=== PATIENT | female | born 1965 | race American Indian/Alaskan Native ===

== ENCOUNTER 2018-07-24 17:46 | Emergency (ER) | payer OTHER ==
[2018-07-24 18:50] VITALS: BMI 35.3
[2018-07-24 18:51] VITALS: RESP 18
[2018-07-24] MEDS ORDERED: Sodium Chloride 0.9% 1,000 ML IV STA (19:18)
[2018-07-24] MEDS ORDERED: Morphine 4 mg/ml ISec IVP STA (19:18)
--- NOTE | 2018-07-24 19:27 | ED PDOC ---
Arrival/HPI - General Chief Complaint: GI Problem Time Seen by Provider: 07/24/18 19:17 - History of Present Illness Narrative History of Present Illness (Text): 53 y/o F w/ h/o breast cancer s/p partial hysterectomy and flap procedure(2007) presenting to the Emergency department for persistent greneralized abdominal pain ongoing for the past 4 days. Patient reports diffuse abdominal pain radiating to the chest and back, nausea, non-bloody, non-bilious emesis, intolerance to PO intake, intermittent chills and decreased bowel movements. She reports attempting to self-medicate by alternating between Tyelenol & Motrin with minimal resolution in symptoms. She denies any previous history of similar complaint. She reports seeing her PMD today who advised her to present to the emergency department for further evaluation. PMD: Dr. Hopkins Time/Duration: Other (4 days) Symptom Course: Intermittent, Worsening Quality: Cramping, Burning Severity Level: 9 Activities at Onset: Rest Context: Home Past Medical History - Provider Review Nursing Documentation Reviewed: Yes - Travel History Have you recently traveled outside [place] w/in the past 3 mons?: No - Infectious Disease Hx of Infectious Diseases: None - Pulmonary Hx Asthma: Yes - Hematological/Oncological Hx Cancer: Yes (L breast CA) - Psychiatric Hx Substance Use: No - Surgical History Other/Comment: L mastectomy. Partial hysterectomy. (?)Trim flap - Anesthesia Hx Anesthesia: Yes Hx Anesthesia Reactions: No Hx Malignant Hyperthermia: No Family/Social History - Physician Review Nursing Documentation Reviewed: Yes Family/Social History: Unknown Family HX Smoking Status: Never Smoked Hx Alcohol Use: No Hx Substance Use: No Allergies/Home Meds Allergies/Adverse Reactions: Allergies No Known Allergies Allergy (Verified 07/24/18 18:49) Review of Systems - Review of Systems Constitutional: Night Sweats. absent: Fatigue, Weight Change, Fevers Respiratory: absent: SOB, Cough, Wheezing Cardiovascular: Chest Pain. absent: Palpitations, Edema, Calf Pain, OLEA Gastrointestinal: Abdominal Pain, Constipation, Nausea, Vomiting, Food Intolerance. absent: Diarrhea Genitourinary Female: absent: Dysuria, Frequency, Hematuria Musculoskeletal: Back Pain, Myalgias Skin: absent: Rash, Laceration Neurological: Headache. absent: Dizziness Physical Exam Vital Signs Reviewed: Yes Vital Signs Temp Pulse Resp BP Pulse Ox 07/24/18 21:24 80 18 140/95 H 99 09/17/18 18:50 98.6 F 97 H 18 143/106 H 97 Temperature: Afebrile Blood Pressure: Hypertensive Pulse: Regular Respiratory Rate: Normal Appearance: Positive for: Well-Appearing Mental Status: Positive for: Alert and Oriented X 3 - Systems Exam Head: Present: Atraumatic, Normocephalic Pupils: Present: PERRL Extroacular Muscles: Present: EOMI Conjunctiva: Present: Normal Mouth: Present: Moist Mucous Membranes Respiratory/Chest: Present: Clear to Auscultation, Good Air Exchange. No: Respiratory Distress Cardiovascular: Present: Regular Rate and Rhythm, Murmurs, Normal S1, S2 Abdomen: Present: Tenderness ( generalized tenderness), Normal Bowel Sounds. No : Distention, Peritoneal Signs, Rebound, Guarding Back: Present: Normal Inspection. No: CVA Tenderness, Midline Tenderness Upper Extremity: Present: Normal Inspection, Capillary Refill < 2s. No: Cyanosis, Edema Neurological: Present: GCS=15, CN II-XII Intact, Speech Normal Skin: Present: Warm, Dry, Normal Color Medical Decision Making ED Course and Treatment: Impression 53 y/o F presenting with generalized abdominal pain Differential Diagnoses Include But Are Not Limited To: Diverticulitis Colitis Gastroenteritis Pancreatitis ACS PUD Plan --Labs --CT a/p --Reglan --Morphine --CXR --EKG -Reassess & disposition Progress Notes 07/25/18 01:53 Labs reviewed with leucytosis of 14 noted. Patient given Cipro & Flagyl as empiric therapy for intraabdominal infection. CT a/p reveals duodenitis with possible PUD. Patient and family member updated on findings and will be reassessed once she finishes antibiotics. - Lab Interpretations Lab Results: 07/24/18 21:20 07/24/18 21:20 Lab Results 07/24/18 21:20: D-Dimer, Quantitative < 200 07/24/18 21:20: Sodium 142, Chloride 99, Potassium 4.4, Carbon Dioxide 32, Anion Gap 15, BUN 12, Creatinine 1.0, Est GFR ( Amer) > 60, Est GFR (Non- Af Amer) 58, Random Glucose 127 H, Calcium 10.2, Magnesium 2.1, Total Bilirubin 0.9, AST 24, ALT 23, Alkaline Phosphatase 87, Troponin I < 0.01, Total Protein 8.6 H, Albumin 4.9 H, Globulin 3.6, Albumin/Globulin Ratio 1.4, Lipase 50 07/24/18 21:20: pO2 34, VBG pH 7.39, VBG pCO2 59.0, VBG HCO3 35.7 H, VBG Total CO2 37.5 H, VBG O2 Sat (Calc) 53.1, VBG Base Excess 8.6 H, VBG Potassium 4.1, Sodium 141.0, Chloride 103.0, Glucose 126 H, Lactate 0.8, FiO2 21.0, Venous Blood Potassium 4.1 07/24/18 21:20: WBC 14.5 H, RBC 4.83, Hgb 15.1, Hct 43.2, MCV 89.4, MCH 31.3, MCHC 35.0, RDW 12.7, Plt Count 272, MPV 9.8, Gran % 73.1 H, Lymph % (Auto) 18.9 L, [place] % (Auto) 7.6 H, Eos % (Auto) 0.3 L, Baso % (Auto) 0.1, Gran # 10.56 H, Lymph # (Auto) 2.7, [place] # (Auto) 1.1 H, Eos # (Auto) 0.0, Baso # (Auto) 0.02, ESR 8 07/24/18 20:32: POC Glucose (mg/dL) 125 H 07/24/18 19:47: Urine Color Yellow, Urine Appearance Clear, Urine pH 6.5, Ur Specific [place] 1.020, Urine Protein 100 H, Urine Glucose (UA) Negative, Urine Ketones 40 H, Urine Blood Negative, Urine Nitrate Negative, Urine Bilirubin Negative, Urine Urobilinogen 1.0 H, Ur Leukocyte Esterase Negative, Urine RBC 0 - 2, Urine WBC 1 - 3, Ur Epithelial Cells 1 - 3 - RAD Interpretation Radiology Orders: 07/24/18 19:17 ABDOMEN & PELVIS [ABD & PELVIS IV CONTRAST ONLY] [CT] Stat 07/24/18 22:30 CHEST ONE VIEW [RAD] Stat - Medication Orders Current Medication Orders: Discontinued Medications Al Hydrox/Mg Hydrox/Simethicone (Maalox Plus 30 Ml) 30 ml PO STAT STA Stop: 07/25/18 01:48 Metoclopramide HCl 10 mg/ (Sodium Chloride) 52 mls @ 200 mls/hr IV STAT STA Stop: 07/24/18 19:33 Last Admin: 07/24/18 23:51 Dose: Not Given Non-Admin Reason: Patient Refused Sodium Chloride (Sodium Chloride 0.9%) 1,000 mls @ 999 mls/hr IV .Q1H1M STA Stop: 07/24/18 20:18 Last Admin: 07/24/18 21:12 Dose: 999 mls/hr eMAR Start Stop Document 07/24/18 21:12 SF (Rec: 07/24/18 21:12 SF [email or web address]) Intravenous Solution Start Date 07/24/18 Start Time 21:12 End Date 07/24/18 End time 22:13 Total Infusion Time 61 Ciprofloxacin (Cipro 400mg/200ml Dsw) 400 mg in 200 mls @ 133.3 mls/hr IVPB STAT STA PRN Reason: Protocol Stop: 07/25/18 00:58 Last Admin: 07/25/18 01:29 Dose: 133.3 mls/hr eMAR Start Stop Document 07/25/18 01:29 RG (Rec: 07/25/18 01:35 RG [email or web address]) Intravenous Solution Start Date 07/25/18 Start Time 01:29 Metronidazole (Flagyl) 500 mg in 100 mls @ 100 mls/hr IVPB STAT STA PRN Reason: Protocol Stop: 07/25/18 00:28 Last Admin: 07/24/18 23:45 Dose: 100 mls/hr eMAR Start Stop Document 07/24/18 23:45 RG (Rec: 07/24/18 23:51 RG [email or web address]) Intravenous Solution Start Date 07/24/18 Start Time 23:45 Morphine Sulfate (Morphine) 4 mg IVP STAT STA Stop: 07/24/18 19:19 Last Admin: 07/24/18 21:23 Dose: 4 mg MAR Pain Assessment Document 07/24/18 21:23 SF (Rec: 07/24/18 21:23 SF [email or web address] Pain Reassessment Is this a pain reassessment? Yes Sleep Is patient sleeping during reassessment? No Presence of Pain Presence of Pain Yes IVP Administration Document 07/24/18 21:23 SF (Rec: 07/24/18 21:23 SF [email or web address]) Charges for Administration # of IVP Administrations 1 Morphine Sulfate (Morphine) 4 mg IVP STAT STA Stop: 07/25/18 01:48 Disposition/Present on Arrival - Present on Arrival Any Indicators Present on Arrival: No History of DVT/PE: No History of Uncontrolled Diabetes: No Urinary Catheter: No History of Decub. Ulcer: No History Surgical Site Infection Following: None - Disposition Have Diagnosis and Disposition been Completed?: Yes Diagnosis: Duodenitis Disposition: HOME/ ROUTINE Disposition Time: 02:04 Patient Plan: Discharge Patient Problems: Current Active Problems Problem Status Onset Duodenitis Acute Condition: STABLE Discharge Instructions (ExitCare): Peptic Ulcers Prescriptions: Ciprofloxacin [Cipro] 500 mg PO DAILY 10 Days #10 tab metroNIDAZOLE [Flagyl] 500 mg PO DAILY 10 Days #10 tab Referrals: Billy Gaytan MD [Primary Care Provider] - Follow up with primary Raj Matias MD [Medical Doctor] - Follow up with primary Forms: [facility] ([place]), WORK NOTE
[2018-07-24 20:08] LABS: PH,URINE 6.5 (4.7-8.0); URINE BILIRUBIN NEGATIVE (NEGATIVE); URINE BLOOD NEGATIVE (NEGATIVE); URINE GLUCOSE (UA) NEGATIVE (NEGATIVE); URINE LEUKOCYTE ESTERASE NEGATIVE Leu/uL (NEGATIVE); URINE PROTEIN 100 mg/dL (<30 mg/dL)
[2018-07-24 20:13] LABS: URINE APPEARANCE CLEAR (CLEAR); URINE COLOR YELLOW (YELLOW)
[2018-07-24 20:50] LABS: URINE RBC 0 - 2 /hpf (0-2)
[2018-07-24] MEDS ORDERED: Iohexol 350 MG/100 ML VIAL ONE (21:24)
[2018-07-24 21:44] LABS: BASO # 0.02 K/mm3 (0.0-2.0); BASO % 0.1 % (0.0-3.0); EOS % 0.3 % (1.5-5.0); GRAN # 10.56 (1.4-6.5); GRAN % 73.1 % (50.0-68.0); HEMOGLOBIN 15.1 g/dL (12.0-16.0); LYMPH # 2.7 (1.2-3.4); LYMPH % 18.9 % (22.0-35.0); MEAN CELL VOLUME 89.4 fl (80.0-105.0); MEAN CORPUSCULAR HEMOGLOBIN 31.3 pg (25.0-35.0); MEAN PLATELET VOLUME 9.8 fl (7.0-11.0); MONO # 1.1 (0.1-0.6); MONO % 7.6 % (1.0-6.0); RBC 4.83 10^6/uL (3.5-6.1); RED CELL DISTRIBUTION WIDTH 12.7 % (11.5-14.5); WHITE BLOOD COUNT 14.5 10^3/ul (4.5-11.0)
[2018-07-24 21:45] LABS: VENOUS BLOOD GAS BASE EXCESS 8.6 mmol/L (0.0-2.0); VENOUS BLOOD GAS PO2 34 mm/Hg (30-55); VENOUS BLOOD PH 7.39 (7.32-7.43)
[2018-07-24 21:57] LABS: ALB/GLOB RATIO 1.4 (1.1-1.8); ALBUMIN 4.9 g/dL (3.0-4.8); ALT/SGPT 23 U/L (7-56); AST/SGOT 24 U/L (14-36); BLOOD UREA NITROGEN 12 mg/dL (7-21); CALCIUM 10.2 mg/dL (8.4-10.5); GFR NON-AFRICAN AMERICAN 58; LIPASE 50 U/L (23-300)
[2018-07-24 22:08] LABS: TROPONIN I < 0.01 ng/mL
[2018-07-24] MEDS ORDERED: Ciprofloxacin 400mg/200ml D5W 400 MG/200 ML BAG IVPB STA (23:28)
[2018-07-24] MEDS ORDERED: metroNIDAZOLE IV 500 mg/100 ml 500 MG/100 ML BAG IVPB STA (23:29)
[2018-07-25] MEDS ORDERED: Morphine 4 mg/ml ISec IVP STA (01:47)
[2018-07-25] MEDS ORDERED: Alum-Mag Hydrox-Simethicone Susp (30 mL) PO STA (01:47)
[2018-07-25 04:19] VITALS: BP 130/88; PULSE 96; TEMP 98.7; O2SAT 100
--- NOTE | 2018-07-25 09:34 | RAD ---
Date of service: 07/25/2018 PROCEDURE: CHEST RADIOGRAPH, 1 VIEW HISTORY: chest pain COMPARISON: None available. FINDINGS: LUNGS: Clear. PLEURA: No pneumothorax or pleural fluid seen. CARDIOVASCULAR: Normal. OSSEOUS STRUCTURES: No significant abnormalities. VISUALIZED UPPER ABDOMEN: Normal. OTHER FINDINGS: None. IMPRESSION: No active disease.
--- NOTE | 2018-07-25 12:34 | CT ---
Date of service: 07/25/2018 PROCEDURE: CT Abdomen and Pelvis with contrast HISTORY: abdominal pain for 4 days COMPARISON: None. TECHNIQUE: Contrast dose: 100 cc of Omni 350 Radiation dose: Total exam DLP = 1171 mGy-cm. This CT exam was performed using one or more of the following dose reduction techniques: Automated exposure control, adjustment of the mA and/or kV according to patient size, and/or use of iterative reconstruction technique. FINDINGS: LOWER THORAX: There is mild mural thickening in the antrum of the stomach and the duodenum. There is equivocal surrounding induration of the fat planes. Findings may represent gastritis/duodenitis. LIVER: Unremarkable. No gross lesion or ductal dilatation. GALLBLADDER AND BILE DUCTS: Unremarkable. PANCREAS: Unremarkable. No gross lesion or ductal dilatation. SPLEEN: Unremarkable. ADRENALS: Unremarkable. No mass. KIDNEYS AND URETERS: Unremarkable. No hydronephrosis. No solid mass. VASCULATURE: Unremarkable. No aortic aneurysm. BOWEL: Unremarkable. No obstruction. No gross mural thickening. APPENDIX: Normal appendix. PERITONEUM: Unremarkable. No free fluid. No free air. LYMPH NODES: Unremarkable. No enlarged lymph nodes. BLADDER: Unremarkable. REPRODUCTIVE: Unremarkable. BONES: No acute fracture. OTHER FINDINGS: The report concurs with the preliminary [facility] report IMPRESSION: There is mild mural thickening in the antrum of the stomach and the duodenum. There is equivocal surrounding induration of the fat planes. Findings may represent gastritis/duodenitis.
--- NOTE | 2018-07-25 13:56 | CARD ---
APPROVED REPORT Date of service: 07/24/2018 EKG Measurement Heart [id number] <Conclusion> Normal sinus rhythm T wave abnormality, consider inferior ischemia Abnormal ECG
== END 2018-07-25 02:15 | disposition home or self-care (01) ==
LOC: ED 17:46
DX: K29.80 Duodenitis without bleeding (principal); Z85.3 Personal history of malignant neoplasm of breast; Z90.711 Acquired absence of uterus with remaining cervical stump
CPT/HCPCS: 71045; 74177; 80053; 81001; 82803; 82948; 83690; 83735; 84484; 85025; 85378; 85651; 93005; 96361; 96374; 96375; 96376; 99285; J0744; J2270; J7030; Q9967

== ENCOUNTER 2019-01-12 12:57 | Emergency (ER) | payer SELFPAY, OTHER | END 2019-01-12 19:25 | disposition home or self-care (01) | LOC: ED 12:57 ==